=== PATIENT | female | born 1965 | race African-American/Black ===

== ENCOUNTER 2017-06-06 08:00 | Observation (INO) | payer BC ==
[2017-06-06] MEDS ORDERED: Nitroglycerin 2% Ointment 1 INCH/1 GM Packet ONE (08:36)
[2017-06-06 09:13] LABS: Hematocrit 29.9 % (36.0-47.0); Red Blood Cell (RBC) Count 3.89 mill/uL (4.20-5.40); White Blood Cell (WBC) Count 5.7 thou/uL (4.8-10.8)
[2017-06-06 09:32] LABS: Troponin I Less than 0.010 ng/mL (< 0.028)
[2017-06-06 09:37] LABS: ALT (SGPT) 8 U/L (8-55); AST (SGOT) 15 U/L (5-34); Alkaline Phosphatase 90 U/L (40-150); Anion Gap 11 mmol/L (10-20); BUN (Urea Nitrogen) 5 mg/dL (7.0-18.7); Bilirubin, Total 0.3 mg/dL (0.2-1.2); CK (CPK) 152 U/L (29-168); Calc. Creatinine Clearance 0 mL/min (70-130); Calcium 8.7 mg/dL (7.8-10.44); Carbon Dioxide 26 mmol/L (22-29); Chloride 104 mmol/L (98-107); Estimated GFR-MDRD Greater than 90; Globulin 3.9 g/dL (2.4-3.5); Hypochromia SLIGHT = 6-15 cells (100X) (0-5/hpf); Lipase 6 U/L (8-78); Microcytosis SLIGHT = 6-15 cells (100X) (0-5/hpf); Neutrophil 62 % (42-75); Polychromasia SLIGHT = 2-3 cells (100X) (0-2/hpf); Protein, Total 7.3 g/dL (6.0-8.3)
[2017-06-06 10:06] LABS: Bilirubin Negative (Negative); Blood, Urine Negative (Negative); Glucose, Urine (Dipstick) 250 mg/dL (Negative); Ketone, Urine Negative (Negative); Nitrite Negative (Negative); Protein, Urine (Dipstick) Negative (Neg-Trace)
--- NOTE | 2017-06-06 10:36 | RAD ---
PORTABLE CHEST 1 VIEW: Date: 06/06/17 Time: 0828 hours HISTORY: Chest pain. FINDINGS: Comparison made with exam of 10/24/10. The heart size is normal. No focal areas of consolidation, pneumothorax, or pleural effusions are se en. IMPRESSION: No radiographic evidence of acute cardiopulmonary process. POS: [facility]
--- NOTE | 2017-06-06 12:02 | HP ---
PRIMARY CARE PHYSICIAN: Richard Mendez M.D. REASON FOR ADMISSION: Chest pain. HISTORY OF PRESENT ILLNESS: A 52-year-old -[place] female with a history of hypertension and dyslipidemia who presented to the emergency room with complaint of chest pain. The patient reports that yesterday when she was walking in the evening time, all of suddenly, she was having chest pain which was left sided in location, sharp in nature, 8/10 in intensity, which was radiating to left arm as well as on the right side of the chest. She was feeling nausea and mild shortness of breath. She denies any diaphoresis. She denies any vomiting. She was having on and off chest pain since then. Each time episode was lasting for about a few minutes to a few seconds. This morning she was also having similar pain and that is why she decided to come to the emergency room for evaluation. Patient denies any relation of chest pain with food, respiration or activity. She denies any cough, fever, or chills. She denies any pleuritic pain. She denies any lower extremity edema, orthopnea, PND or leg swelling. She denies any dizziness, palpitation. She denies any reproducible pain. In the emergency room after treatment, her pain intensity reduced to 2/10. At this point, emergency room workup is unremarkable. Her cardiogram, chest x-ray and routine blood test is unremarkable and we are keeping this patient in the hospital for observation to rule out underlying cardiac etiology. REVIEW OF SYSTEMS: The following complete review of systems was negative, unless otherwise mentioned in the HPI or below: Constitutional: Weight loss or gain, ability to conduct usual activities. Skin: Rash, itching. Eyes: Double vision, pain. ENT/Mouth: Nose bleeding, neck stiffness, pain, tenderness. Cardiovascular: Palpitations, dyspnea on exertion, orthopnea. Respiratory: Shortness of breath, wheezing, cough, hemoptysis, fever or night sweats. Gastrointestinal: Poor appetite, abdominal pain, heartburn, nausea, vomiting, constipation, or diarrhea. Genitourinary: Urgency, frequency, dysuria, nocturia. Musculoskeletal: Pain, swelling. Neurologic/Psychiatric: Anxiety, depression. Allergy/Immunologic: Skin rash, bleeding tendency. Please see my HPI for pertinent positive and negative. All other review of systems reviewed and negative except as mentioned in the HPI. PAST MEDICAL HISTORY: Hypertension, on hypertensive medication; dyslipidemia, not on any statin therapy. PAST SURGICAL HISTORY: x2 and tubal ligation. PAST PSYCHIATRIC HISTORY: Reviewed and negative. 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 No history of tobacco, alcohol or illicit drug abuse. FAMILY HISTORY: The patient's mother had heart attack. No family history of cancer or stroke. ALLERGIES: No known drug allergies. CURRENT HOME MEDICATIONS: The patient is taking one blood pressure medication, but she is not able to tell the name of medication and she did not bring medication, so unable to review at this point. EMERGENCY ROOM COURSE: Patient is given Zofran 4 mg, morphine 2 mg, nitro patch 1 inch, aspirin 324 mg. PHYSICAL EXAMINATION: VITAL SIGNS: On arrival, blood pressure 188/90, pulse 105, respiratory rate 20 , temperature 98.5, saturation 98% on room air, weight 99.8 kilograms. GENERAL: Patient is currently alert, awake, no obvious acute distress. HEAD: Normocephalic, atraumatic. EYES: Pupils round, reactive to light. Extraocular muscles intact. ENT: Oropharynx within normal limits. Moist mucous membranes. No oral lesions. No pharyngeal erythema, no exudate. NECK: Supple. Range of motion is normal. No meningeal signs of irritation. LUNGS: Clear to auscultation without any rhonchi or rales. CARDIAC: S1, S2 regular without any murmur. ABDOMEN: Soft, bowel sounds present, nontender, nondistended. No organomegaly , no mass, no suprapubic tenderness. No epigastric tenderness, no Aguila sign. BACK: Examination unremarkable, no CVA tenderness. EXTREMITIES: Upper extremity passive movements of all joints are normal. Lower extremity, no edema. Good peripheral pulsation, no calf tenderness. SKIN: No skin rash. HEMATOLOGICAL SYSTEM: No lymphadenopathy. PSYCHIATRIC: Normal affect. NEUROLOGIC: Nonfocal examination. Speech normal. The patient moves all 4 limbs. IMAGING AND LABORATORY DATA: 1. EKG based on my review reveals normal sinus rhythm without any ischemic changes. Chest x-ray based on my review, no acute cardiopulmonary process. 2. CBC: WBC is 5.7, hemoglobin 9.3, platelet 269, MCV 76.8. 3. BMP; sodium 137, potassium 3.6, chloride 104, carbon dioxide 26, BUN 5, creatinine 0.77, glucose 131, calcium 8.7. 4. LFT: AST 15, ALT 8, alkaline phosphatase 90, albumin 3.4, CK 152, CK-MB 0.9 , troponin I less than 0.010, BNP 27.0. Urinalysis normal. Urine test negative. ASSESSMENT AND PLAN/IMPRESSION: 1. Acute chest pain. Patient had chest pain started yesterday and since then she has recurrent chest pain. Currently cardiac enzymes are negative and EKG is unremarkable. Her description of pain is also very atypical. At this point , this patient's pain is most likely explained with musculoskeletal, but given her risk factor profile with family history of hypertension and her age, cardiac etiology needs to be excluded. At this point, we will keep this patient in the hospital for observation. We will do serial cardiac enzymes x3 to rule out underlying ischemia. If cardiac enzymes are negative, then we will perform exercise Cardiolite stress test tomorrow morning. I will check D-dimer as well and if her D-dimer is negative, then we will completely exclude thromboembolic possibility, but if D-dimer is abnormal, then we will perform CT angio if needed. Meanwhile, continue with aspirin 325 mg p.o. daily, nitro patch q.8 hourly. Will check lipid profile for risk stratification. 2. Hypertension. Once we verify the patient's home medication for blood pressure, then we will resume while in hospital. Currently, the patient will be on nitro patch q.8 hourly. We will monitor the patient's blood pressure. 3. Dyslipidemia. We will check lipid profile tomorrow and based on lipid profile result, we will start statin therapy upon discharge. 4. Chronic microcytic anemia. This patient will need outpatient colonoscopy and endoscopic evaluation for anemia workup. We will start ferrous sulfate 324 mg p.o. b.i.d. and will check ferritin level. 5. Deep venous thrombosis prophylaxis not needed because we are expecting discharge in 24 hours. 6. Gastrointestinal prophylaxis, Pepcid 20 mg p.o. b.i.d. 7. Code status: The patient is FULL CODE. Patient's is surrogate decision maker. Disposition plan based on stress test result. [facility]ITALStefany
[2017-06-06] MEDS ORDERED: Diabetic Tussin 200 MG/10 ML UDCUP PO PRN (12:12)
[2017-06-06] MEDS ORDERED: Zolpidem Tartrate 5 MG TAB PO PRN (12:12)
[2017-06-06] MEDS ORDERED: Senokot 8.6 MG TAB PO PRN (12:12)
[2017-06-06] MEDS ORDERED: Acetaminophen 325 MG TAB PO PRN (12:12)
[2017-06-06] MEDS ORDERED: Mag-Al 1200 mg/1200 mg/30 ML UDCUP PO PRN (12:12)
[2017-06-06] MEDS ORDERED: Ondansetron HCl/PF 4 MG/2 ML Vial IVP PRN (12:12)
[2017-06-06] MEDS ORDERED: Ondansetron ODT 4 MG TAB PO PRN (12:12)
[2017-06-06] MEDS ORDERED: Milk Of Magnesia 30 ML UDCUP PO PRN (12:12)
[2017-06-06] MEDS ORDERED: Loperamide HCl 2 MG CAP PO PRN (12:12)
[2017-06-06] MEDS ORDERED: Nitroglycerin 0.4 MG TAB (25 Tab Bottle) SL PRN (12:12)
[2017-06-06 12:13] VITALS: BMI 42.7
[2017-06-06 12:16] LABS: Troponin I 0.012 ng/mL (< 0.028)
[2017-06-06] MEDS: Nitroglycerin 2% Ointment 1 INCH/1 GM Packet TOP SCH ×2 (14:29→22:11)
[2017-06-06 15:17] LABS: Troponin I Less than 0.010 ng/mL (< 0.028)
[2017-06-06] MEDS: Lorazepam 2 MG/ML VIAL ONE ×2 (16:57→17:17)
[2017-06-06] MEDS: Lorazepam 2 MG/ML VIAL SLOW IVP SCH ×3 (17:15→17:53)
[2017-06-06] MEDS: HYDROcodone/Acetaminophen 10/325 mg Tablet PO PRN (19:11)
[2017-06-06] MEDS: Famotidine 20 MG TAB PO SCH (19:11)
[2017-06-07] MEDS: HYDROcodone/Acetaminophen 10/325 mg Tablet PO PRN ×2 (04:38→12:05)
[2017-06-07] MEDS: Nitroglycerin 2% Ointment 1 INCH/1 GM Packet TOP SCH ×2 (05:37→14:55)
[2017-06-07] MEDS ORDERED: Ferrous Sulfate 325 MG TAB PO SCH (08:00)
[2017-06-07] MEDS ORDERED: Aspirin 325 MG TAB PO SCH (09:00)
[2017-06-07] MEDS ORDERED: Lorazepam 2 MG/ML VIAL SLOW IVP SCH (09:00)
[2017-06-07 11:48] VITALS: TEMP 97.9
[2017-06-07] MEDS: Famotidine 20 MG TAB PO SCH (12:06)
--- NOTE | 2017-06-07 13:06 | DIS ---
DATE OF ADMISSION: 06/06/2017 DATE OF DISCHARGE: 06/07/2017 PRIMARY CARE PHYSICIAN: Dr. Richard Mendez. DISCHARGE DISPOSITION: Home. PRIMARY DISCHARGE DIAGNOSIS: Chest pain, ruled out acute coronary syndrome. SECONDARY DISCHARGE DIAGNOSES: Hypertension, dyslipidemia, microcytic anemia, morbid obesity with BMI of 42. PRIMARY PROCEDURE/OPERATION: None. RADIOLOGICAL INVESTIGATION: Chest x-ray was normal. Stress test was negative. SIGNIFICANT LABORATORY: Hemoglobin 9.3 and D-dimer less than 0.27. Creatinine 0.77, ferritin 5.11. Cardiac enzymes negative. BNP 27, LDL 108. Urinalysis normal. DISCHARGE MEDICATIONS: New medication: Ferrous sulfate 325 mg p.o. daily, Pepcid 20 mg p.o. b.i.d. Continue following medication: Prinzide 10/12.5 one tablet p.o. daily. CONTRAINDICATIONS: None. CODE STATUS: FULL CODE. INPATIENT CONSULTANTS: None. ALLERGIES: No known drug allergies. DISCHARGE PLAN: Post hospital, the patient will follow up with Dr. Richard Mendez in 1 week. The patient is advised to get an outpatient EGD and colonoscopy for anemia workup. HOSPITAL COURSE: A 52-year-old -[place] female who came to the emergency room with a complaint of chest pain. Please see my HPI for further details. Her chest pain description was atypical. Based on her description, it was predominantly noncardiac, but because of her risk factors, we decided to keep this patient in the hospital. We did serial cardiac enzymes and that were negative. In the emergency room, electrocardiogram was normal. Chest x-ray was normal. Subsequent cardiac enzymes were negative. Telemetry remained unremarkable. She was asymptomatic while in hospital. We did exercise Cardiolite stress test, which was done in 2 days protocol, which came back negative as well. This patient has microcytic anemia and there is very low ferritin, and that is why we advised her to get iron supplementation and advised her to get outpatient EGD and colonoscopy for anemia workup. Primary care physician will refer her to [facility]. The patient is seen and examined at the bedside today. PHYSICAL EXAMINATION: VITAL SIGNS: Currently, temperature 97.9, pulse 82, respiratory rate 20, saturation 100%, blood pressure 159/78. Weight 261 pounds. GENERAL: The patient is currently alert, awake, in no acute distress. HEAD: Normocephalic, atraumatic. EYES: Pupils round, reactive to light. LUNGS: Clear to auscultation without any rhonchi or rales. CARDIAC: S1, S2 regular without any murmur. ABDOMEN: Soft and benign without any tenderness. No organomegaly, no mass. EXTREMITIES: No edema. NEUROLOGIC: Nonfocal examination. The patient is medically stable for discharge today. Before discharge, pt felt headache and vomiting, so we are doing CT brain. JJ
--- NOTE | 2017-06-07 14:01 | NM ---
NUCLEAR MEDICINE CARDIAC STRESS TEST WITH EJECTION FRACTION: HISTORY: Chest pain. High cholesterol. Hyperlipidemia. COMPARISON: Nuclear medicine stress test from 2011. TECHNIQUE: Stress and rest was performed after intravenous administration of 30 and 29.1 mCi technetium-99m ses tamibi, respectively. The exam was performed via nuclear treadmill stress. FINDINGS: Normal perfusion. No ischemia or scar. Normal wall motion. Ejection fraction calculated at 56%. IMPRESSION: Normal nuclear medicine stress test and ejection fraction. POS: [facility]
[2017-06-07 15:38] VITALS: BP 147/68
--- NOTE | 2017-06-07 15:38 | CT ---
CT BRAIN NONCONTRAST: 06/07/17 HISTORY: 52-year-old female with headache and dizziness. FINDINGS: There is no midline shift or any other mass effect. There is no evidence of acute intracranial hemo rrhage, large cortical infarct, obstructive hydrocephalus, or extraaxial fluid collection. The calv arium is intact. IMPRESSION: No acute intracranial findings. jn [] POS: [facility]
== END 2017-06-07 15:56 | disposition home or self-care (01) ==
LOC: ERS 08:00 → 2SW 10:48
PROVIDERS: ADMIT Internal Medicine; ATTEND Internal Medicine
DX: R07.89 Other chest pain (principal); I10 Essential (primary) hypertension; E78.5 Hyperlipidemia, unspecified; D64.9 Anemia, unspecified; E66.01 Morbid (severe) obesity due to excess calories; Z79.899 Other long term (current) drug therapy; Z68.41 Body mass index [BMI] 40.0-44.9, adult; Z98.891 History of uterine scar from previous surgery; Z98.51 Tubal ligation status
CPT/HCPCS: 36415; 70450; 71010; 78452; 80053; 80061; 81003; 81025; 82553; 82728; 83690; 83880; 84484; 85025; 85379; 93005; 93017; 94760; 96374; 96375; 96376; A9500; G0378; J2060; J2270; Q0162

== ENCOUNTER 2018-01-08 13:59 | Observation (INO) | payer BC ==
[~2018-01-08 13:59] MED LIST: ISOVUE-370 76%-LOCM 1 ML ONE
--- NOTE | 2018-01-08 14:52 | RAD ---
SINGLE VIEW CHEST: Date: 01/08/18 INDICATION: History of chest pain. IMPRESSION: No acute cardiopulmonary abnormality. The examination is not appreciably changed from the comparison dated 06/06/17. POS: [facility]
[2018-01-08 15:32] LABS: #Basophils 0.1 thou/uL (0.0-0.2); #Eosinphils 0.1 thou/uL (0.0-0.7); #Monocytes 0.8 thou/uL (0.11-0.59); #Neutrophils 5.3 thou/uL (1.40-6.50); %Basophils 1.6 % (0.0-1.0); %Eosinophils 1.4 % (0.0-10.0); %Lymphocytes 23.9 % (21.0-51.0); %Monocytes 9.6 % (0.0-10.0); %Neutrophils 63.5 % (42.0-75.0); Mean Corpuscular HGB CONC 32.7 g/dL (32.0-36.0); Mean Corpuscular Hemoglobin 24.4 pg (27.0-31.0); Mean Corpuscular Volume 74.6 fl (81.0-99.0); Mean Platelet Volume 8.7 fL (7.4-10.4); Platelet Count 261 thou/uL (130-400); RBC Distribution Width 15.8 % (11.5-14.5); Red Blood Cell (RBC) Count 4.08 mill/uL (4.20-5.40); White Blood Cell (WBC) Count 8.4 thou/uL (4.8-10.8)
[2018-01-08 15:48] LABS: Anisocytosis SLIGHT = 6-15 cells (100X) (0-5/hpf); Hypochromia SLIGHT = 6-15 cells (100X) (0-5/hpf); MDiff Complete? YES; Microcytosis SLIGHT = 6-15 cells (100X) (0-5/hpf); PLT Morphology Comment Appears Adequate; Polychromasia SLIGHT = 2-3 cells (100X) (0-2/hpf)
[2018-01-08 15:50] LABS: ALT (SGPT) 15 U/L (8-55); AST (SGOT) 24 U/L (5-34); Alkaline Phosphatase 91 U/L (40-150); Anion Gap 17 mmol/L (10-20); BUN (Urea Nitrogen) 10 mg/dL (7.0-18.7); Bilirubin, Total 0.3 mg/dL (0.2-1.2); CK (CPK) 172 U/L (29-168); Calc. Creatinine Clearance 0 mL/min (70-130); Calcium 9.4 mg/dL (7.8-10.44); Carbon Dioxide 19 mmol/L (22-29); Chloride 104 mmol/L (98-107); Estimated GFR-MDRD Greater than 90; Globulin 4.2 g/dL (2.4-3.5); Glucose 105 mg/dL (70-105); Lipase 13 U/L (8-78); Protein, Total 8.2 g/dL (6.0-8.3); Sodium 136 mmol/L (136-145)
[2018-01-08 15:53] LABS: Troponin I Less than 0.010 ng/mL (< 0.028)
[2018-01-08] MEDS ORDERED: Nitroglycerin 2% Ointment 1 INCH/1 GM Packet ONE (15:57)
[2018-01-08] MEDS ORDERED: Lorazepam 2 MG/ML VIAL ONE (16:26)
--- NOTE | 2018-01-08 17:00 | CT ---
CT ANGIOGRAM OF THE CHEST 01/08/18 HISTORY: Chest pain. Shortness of breath. COMPARISON: None. TECHNIQUE: CT angiogram of the chest performed in the axial plain. Bilateral oblique and coronal three dimension al reformatted images are submitted for interpretation. FINDINGS: No mediastinal mass, lymphadenopathy or hematoma. Nonspecific paratracheal lymph nodes. Heart size is normal. No significant pericardial fluid. The thoracic aorta and upper abdominal aorta have a normal caliber. No periaortic fat stranding. The visualized solid organs are unremarkable. Suboptimal evaluation of the pulmonary arterial system due to timing of bolus. The central pulmonary arteries are grossly unremarkable for filling defect/th romboembolism. The lobar segmental and subsegmental arteries could not be adequately assessed. Trache a and central bronchi are patent. No consolidation or masses. No pleural effusion or pneumothorax. No lytic or blastic lesions in the osseous structures. IMPRESSION: Suboptimal evaluation of the pulmonary arterial system due to the timing of bolus. No obvious central pulmonary artery embolism is appreciated. POS: [facility]
[2018-01-08 18:27] LABS: Troponin I Less than 0.010 ng/mL (< 0.028)
--- NOTE | 2018-01-08 18:34 | PDOC.FPRHP ---
- History of Present Illness Chief Complaint: Chest Pain History of Present Illness: 52 yo AA female, w/ pmh of HTN and HLD, comes in w/ cc of chest pain. Says chest pain started around 1:30 today. Described chest pain as sharp and stabbing. Occurred in left side of chest. Pain did not radiate anywhere. Reports being SOB during the episode. Did not do anything that resolved the pain. The pain lasted until she came to the ER. Nothing made it better or worse. Reports vision changes, says vision has been changing the last few weeks. Reports having daily headaches as well for a long time. Denies n/v/d/c. Reports having to pee all the time. Denies any burning when peeing. Pt reports taking all her bp medication this morning. Denies any fever or chills or recent illness. Pt was diagnosed with DVT at [facility] 05/2017. Has since finished anticoagulation treatment. Pt had chest pain like episode at this visit as well. Was worked up with stress test which was negative. - Allergies/Adverse Reactions Allergies Allergy/AdvReac Type Severity Reaction Status Date / Time No Known Allergies Allergy Verified 01/08/18 19:20 - Home Medications Medication Instructions Recorded Confirmed Type Lisinopril/Hydrochlorothiazide 1 tab PO DAILY #30 tab 07/20/13 06/06/17 Rx [Prinizide] Famotidine [Pepcid] 20 mg PO BID #60 tab 06/07/17 Rx Ferrous Sulfate [Feosol] 325 mg PO QAM-WM #30 tab 06/07/17 Rx Comments: Medications listed above are from previous hospitilization. Pt reports some of the medication doses being adjusted recently. Does not know the specific doses or names of medicines at this time. Will await home meds and need to adjust med reconciliation - History PMHx: HTN, HLD PSHx: x2 and tubal ligation FHx: Mother: heart attack Diabetes and HTN on both sides the family Social: Never Smoker, No alcohol, No illicit drug use - Review of Systems General: denies: fever/chills, weight/appetite/sleep changes, night sweats, fatigue ENT: denies: nasal congestion, rhinorrhea, other Respiratory: reports: shortness of breath, exercise intolerance. denies: cough , congestion Cardiovascular: reports: chest pain, edema (Notices swelling in her hands during the night). denies: palpitation, paroxysmal nocturnal dyspnea, orthopnea Gastrointestinal: denies: nausea, vomiting, diarrhea, constipation, abdominal pain, GI bleeding Genitourinary: denies: incontinence, dysuria, polyuria, discharge Skin: denies: rashes, lesions, jaundice, itching Musculoskeletal: denies: pain, tenderness, stiffness, swelling, arthritis/ arthralgias Neurological: denies: numbness, seizure, weakness Psychological: denies: anxiety, depression - Vital signs BP: [171/88] HR: [100] RR: [18] Tmax: [98.8] Pox: [98]% on [RA] Wt: [126 kg] - Physical Exam Constitutional: NAD, awake, alert and oriented, well developed HEENT: normocephalic and atraumatic, PERRLA, EOMI, grossly normal vision, normal nasal mucosa, MMM Neck: supple, trachea midline, no LAD, no JVD, no thyromegaly, no bruits Chest: no-tender to palpation Heart: RRR, normal S1/S2, no murmurs/rubs/gallops, pulses present, no edema Lungs: CTAB, no respiratory distress, good air movement, no rales/rhonchi, no wheezing, no retractions -Lungs: Lungs somewhat hard to auscultate. No abnormality noted overall Abdomen: soft, non-tender, bowel sounds present, no masses/distention, no hernias Musculoskeletal: normal structure, normal tone Neurological: no focal deficit, normal sensation Skin: no rash/lesions, good turgor, capillary refill <2 seconds, no jaundice Heme/Lymphatic: no unusual bruising or bleeding, no purpura, no petechia Psychiatric: normal mood and affect, good judgment and insight, intact recent and remote memory FMR H&P: Results - Labs Result Diagrams: 01/08/18 14:49 01/08/18 14:49 Lab results: WBC 8.4 thou/uL (4.8-10.8) 01/08/18 14:49 Hgb 10.0 g/dL (12.0-16.0) L 01/08/18 14:49 Hct 30.4 % (36.0-47.0) L 01/08/18 14:49 MCV 74.6 fl (81.0-99.0) L 01/08/18 14:49 Plt Count 261 thou/uL (130-400) 01/08/18 14:49 Neutrophils % 63.5 % (42.0-75.0) 01/08/18 14:49 Sodium 136 mmol/L (136-145) 01/08/18 14:49 Potassium 4.0 mmol/L (3.5-5.1) 01/08/18 14:49 Chloride 104 mmol/L (98-107) 01/08/18 14:49 Carbon Dioxide 19 mmol/L (22-29) L 01/08/18 14:49 BUN 10 mg/dL (7.0-18.7) 01/08/18 14:49 Creatinine 0.76 mg/dL (0.6-1.1) 01/08/18 14:49 Glucose 105 mg/dL (70-105) 01/08/18 14:49 Calcium 9.4 mg/dL (7.8-10.44) 01/08/18 14:49 Total Bilirubin 0.3 mg/dL (0.2-1.2) 01/08/18 14:49 AST 24 U/L (5-34) 01/08/18 14:49 ALT 15 U/L (8-55) 01/08/18 14:49 Alkaline Phosphatase 91 U/L (40-150) 01/08/18 14:49 Creatine Kinase 172 U/L (29-168) H 01/08/18 14:49 CK-MB (CK-2) 1.0 ng/mL (0-6.6) 01/08/18 14:49 B-Natriuretic Peptide Less than 10.0 pg/mL (0-100) 01/08/18 14:52 Serum Total Protein 8.2 g/dL (6.0-8.3) 01/08/18 14:49 Albumin 4.0 g/dL (3.5-5.0) 01/08/18 14:49 Lipase 13 U/L (8-78) 01/08/18 14:49 - EKG Interpretation EKG: Normal Sinus Rhythm, No abnormality noted - Radiology Interpretation Chest x-ray Status: image reviewed by me, report reviewed by me (No acute cardiopulmonary process. No change form cxray back in 9/17) CT scan - chest Status: image reviewed by me, report reviewed by me (CTA- dye not timed right. No central PE seen) FMR H&P: A/P - Problem List (1) Atypical chest pain Current Visit: No Status: Acute Code(s): R07.89 - OTHER CHEST PAIN (2) Hypertensive urgency Current Visit: No Status: Acute Code(s): I16.0 - HYPERTENSIVE URGENCY (3) Dyslipidemia Current Visit: No Status: Chronic Code(s): E78.5 - HYPERLIPIDEMIA, UNSPECIFIED (4) Hypertension Current Visit: No Status: Chronic Code(s): I10 - ESSENTIAL (PRIMARY) HYPERTENSION (5) Microcytic anemia Current Visit: No Status: Chronic Code(s): D50.9 - IRON DEFICIENCY ANEMIA, UNSPECIFIED - Plan 1) Atypical chest pain, likely 2/2 Elevated Blood pressure Will place in observation to telemetry and proceed with chest pain rule out (pt 's last stress > 6 months ago). Troponins negative so far, continue to trend. R/p EKG if any acute changes. Plan for stress test in AM. Will check mg, p, TSH, A1C Nitro prn for any recurrent chest pain 2) Hypertensive urgency. Suspect poor BP control to be primary cause of chest pain and recent symptoms such as visual blurring. BP likely been elevated for last few weeks. Did not check BP at home Will adjust BP medications while in-house. Prns ordered. Patient did not know home meds doses. Will med rec and adjust medications as possible. 3) HLD. Check FLP, start statin if patient not on one. Await med rec. 4) H/o DVT. PPx with Lovenox. CTA done- negative for PE. No increased leg swelling at this time. 5) Iron Deficiency Anemia Hgb 10, MCV low. Will start BID iron supplementationRestart iron supplementation. FMR H&P: Upper Level - Pertinent history 52 yo BF pmhx HTN, HLD, and DVT 6 mo ago p/w chest pain x 1 day. Describes it as left sided, sharp/shooting, and non-radiating. Came on acutely while she was sitting down. Denies associated dyspnea, N/V, or diaphoresis. She is not sure if exertion makes the pain worse as she hasn't really moved around since the pain started. Also endorses about 2-3 weeks of visual blurring and increased urinary frequency. Patient states that she does not check her BPs regularly at home but is compliant with her home BP medication. Pts BPs were noted to be 190s systolic upon presentation in ER and improved slightly after nitro-patch applied. Patient states that her chest pain also improved after nitro and ASA. She underwent CTA due to her history of DVT which was not correctly timed and so could not evaluate the peripheral pulmonary arteries but showed no central PE. Patient had no hypoxia in ER. She had already finished her course of blood thinners. Of note, patient had a full chest pain workup including stress test back in May 2017 that was negative. - Pertinent findings Gen: AAOx3, NAD CV: RRR; no m/g/r Lungs: CTAB Abd: central obesity, +BS, non-tender Ext: non-pitting edema, DP pulses 2+ b/l Skin: acanthosis nigricans - Plan Date/Time: 01/08/18 677 I, Valdemar Bruno MD, have evaluated this patient and agree with findings/plan as outlined by auditor internal resident. Pertinent changes/additions are listed here. 52 yo BF with: 1) Atypical chest pain, likely 2/2 #2 v. less likely ACS. Will place in observation to telemetry and proceed with chest pain rule out (pt's last stress > 6 months ago). Troponins negative so far, continue to trend. R/p EKG if any acute changes. Plan for stress test in AM. Risk stratification with FLP and A1c. 2) Hypertensive urgency. Suspect poor BP control to be primary cause of chest pain and recent symptoms such as visual blurring. Will adjust BP medications while in-house. Prns ordered. 3) HLD. Check FLP, start statin (unsure if pt already on) 4) H/o DVT. PPx with Lovenox. 5) JENNIFER. Restart iron supplementation. Attending Addendum - Attending Addendum Date/Time: 01/08/18 0492 I personally evaluated the patient and discussed the management with Dr. Perez. I agree with the History, Examination, Assessment and Plan documented above with any addition or exceptions noted below.
[2018-01-08] MEDS ORDERED: Calcium Carbonate 500 MG ChewTAB PO PRN ×2 (19:09→22:49)
[2018-01-08] MEDS ORDERED: Ondansetron ODT 4 MG TAB PO PRN ×2 (19:09→22:49)
[2018-01-08] MEDS ORDERED: Acetaminophen 650 MG Suppository PR PRN ×2 (19:09→22:48)
[2018-01-08] MEDS ORDERED: Acetaminophen 325 MG TAB PO PRN ×2 (19:09→22:48)
[2018-01-08] MEDS ORDERED: Ondansetron HCl/PF 4 MG/2 ML Vial IVP PRN ×2 (19:09→22:49)
[2018-01-08] MEDS ORDERED: hydrALAZINE 20 MG/ML VIAL SLOW IVP PRN ×2 (19:11→22:50)
[2018-01-08 19:14] VITALS: BMI 45.1
[2018-01-08] MEDS ORDERED: Lisinopril/Hydrochlorothiazide 10 mg/12.5 mg Tablet PO SCH (19:15)
[2018-01-08] MEDS ORDERED: Enoxaparin Sodium 40 MG/0.4 ML SYRINGE SC SCH (19:15)
[2018-01-08] MEDS ORDERED: Ferrous Sulfate 325 MG TAB PO SCH ×2 (19:15→19:45)
[2018-01-08] MEDS ORDERED: Nitroglycerin 0.4 MG TAB (25 Tab Bottle) SL PRN ×2 (19:18→22:50)
[2018-01-08 19:36] LABS: Magnesium 2.1 mg/dL (1.6-2.6); Phosphorus 3.5 mg/dL (2.3-4.7)
[2018-01-08 19:40] LABS: Hemoglobin A1c 5.6 % (4.0-6.0)
[2018-01-08] MEDS ORDERED: Famotidine 20 MG TAB PO SCH (21:00)
[2018-01-09] MEDS ORDERED: Ferrous Sulfate 325 MG TAB PO SCH ×2 (08:00)
[2018-01-09] MEDS ORDERED: Enoxaparin Sodium 40 MG/0.4 ML SYRINGE SC SCH ×2 (09:00)
[2018-01-09] MEDS ORDERED: Lisinopril/Hydrochlorothiazide 10 mg/12.5 mg Tablet PO SCH (09:00)
[2018-01-09] MEDS ORDERED: Famotidine 20 MG TAB PO SCH (09:00)
[2018-01-09 12:14] VITALS: BP 159/80; TEMP 98.1
[2018-01-09] MEDS ORDERED: Fioricet 325/50/40 mg Tablet PO PRN (13:32)
--- NOTE | 2018-01-09 13:39 | PDOC.FM ---
- Subjective Subjective: No chest pain this morning. Described chest pain as left sided and substernal, constant, sharp. No shortness of breath or nausea associated without radiation. - Objective MAR Reviewed: Yes Vital Signs & Weight: Vital Signs (12 hours) Temp Pulse Resp BP Pulse Ox 01/09/18 11:45 98.1 F 83 16 159/80 H 100 01/09/18 08:13 83 01/09/18 07:49 97.9 F 83 16 01/09/18 07:40 98.0 F 82 16 145/70 H 100 01/09/18 04:17 97.9 F 83 16 132/66 96 Weight Weight 126.961 kg I&O: 01/08/18 01/09/18 01/10/18 06:59 06:59 06:59 Intake Total 240 Output Total 800 Balance -560 Result Diagrams: 01/08/18 14:49 01/08/18 14:49 <Regina Mendez - Last Filed: 01/09/18 13:39> - Objective Vital Signs & Weight: Vital Signs (12 hours) Temp Pulse Resp BP Pulse Ox 01/09/18 11:45 98.1 F 83 16 159/80 H 100 01/09/18 08:13 83 01/09/18 07:49 97.9 F 83 16 01/09/18 07:40 98.0 F 82 16 145/70 H 100 Weight Weight 126.961 kg I&O: 01/08/18 01/09/18 01/10/18 06:59 06:59 06:59 Intake Total 240 Output Total 800 Balance -560 Result Diagrams: 01/08/18 14:49 01/08/18 14:49 <Shraddha Jones - Last Filed: 01/09/18 17:16> Phys Exam - Physical Examination Constitutional: NAD HEENT: PERRLA, moist MMs Respiratory: no wheezing, no rales, no rhonchi, clear to auscultation bilateral Cardiovascular: RRR, no significant murmur Gastrointestinal: soft, non-tender, no distention Musculoskeletal: no edema, pulses present Neurological: non-focal, normal sensation Psychiatric: normal affect, A&O x 3 Skin: no rash, normal turgor <Regina Mendez - Last Filed: 01/09/18 13:39> Dx/Plan (1) Hypertensive emergency Code(s): I16.1 - HYPERTENSIVE EMERGENCY Status: Acute (2) Atypical chest pain Code(s): R07.89 - OTHER CHEST PAIN Status: Acute (3) Dyslipidemia Code(s): E78.5 - HYPERLIPIDEMIA, UNSPECIFIED Status: Chronic (4) Hypertension Code(s): I10 - ESSENTIAL (PRIMARY) HYPERTENSION Status: Chronic - Plan Plan: 1) Atypical chest pain, Pt's last stress > 6 months ago. Troponins negative. EKG wnl. TSH elevated with normal free T4. Recommend outpatient follow-up on TSH level. Nitro prn for any recurrent chest pain Lipid panel pending. 2) Hypertensive emergency Continue Lisinopril/HCTZ 3) HLD. FLP pending; will start statin pending lipid panel and ascvd risk. 4) H/o DVT. PPx with Lovenox. CTA done- negative for PE. No increased leg swelling at this time. 5) Iron Deficiency Anemia Hgb 10, MCV low. BID iron supplementation. Dispo: prior stress completed ~6 mo ago. No indication for additional stress test today. Spoke with cardiology. Recommend follow-up with PCP. Recommend repeat TSH in 4-6 weeks. <Regina Mendez - Last Filed: 01/09/18 13:39> Attending Addendum - Attending Addendum Date/Time: 01/09/18 4835 I personally evaluated the patient and discussed the management with Dr. Mendez. I agree with the History, Examination, Assessment and Plan documented above with any addition or exceptions noted below. The patient is not having chest pain this morning. Cardiology did not think pt needed a stress test with a workup done about 6 months ago. Will discharge home and pt will f/u with PCP. Our clinic information was given to the patient. <Shraddha Jones - Last Filed: 01/09/18 17:16>
[2018-01-09 14:03] LABS: Cardiac Risk 3.3 (Less than 4.5)
== END 2018-01-09 15:22 | disposition home or self-care (01) ==
LOC: ERS 13:59 → 2SW 19:01 → UNDODISOB 21:29
PROVIDERS: ADMIT Family Medicine; ATTEND Family Medicine
DX: R07.89 Other chest pain (principal); I16.0 Hypertensive urgency; I10 Essential (primary) hypertension; E78.5 Hyperlipidemia, unspecified; D50.9 Iron deficiency anemia, unspecified
CPT/HCPCS: 36415; 71045; 71275; 80053; 80061; 82553; 83036; 83690; 83735; 83880; 84100; 84439; 84443; 84484; 85025; 93005; 96372; 96374; G0378; J1650; J2060

== ENCOUNTER 2018-10-26 14:04 | Outpatient (CLI) | payer BC | END 2018-10-26 14:05 | disposition home or self-care (01) | LOC: BICMAMMO 14:04 | PROVIDERS: ATTEND Physician Assistant | DX: N64.52 Nipple discharge (principal); R92.1 Mammographic calcification found on diagnostic imaging of breast; Z80.3 Family history of malignant neoplasm of breast | CPT/HCPCS: 77066; G0279 ==

== ENCOUNTER 2018-11-06 04:28 | Observation (INO) | payer BC ==
[2018-11-06] MEDS ORDERED: Nitroglycerin 0.4 MG TAB 1 EACH ONE (04:59)
[2018-11-06] MEDS ORDERED: Aspirin Chewable 81 MG TAB ONE (04:59)
[2018-11-06 05:00] LABS: #Eosinphils 0.1 thou/uL (0.0-0.7); #Monocytes 0.6 thou/uL (0.11-0.59); #Neutrophils 3.3 thou/uL (1.40-6.50); %Basophils 0.1 % (0.0-1.0); %Eosinophils 1.4 % (0.0-10.0); %Lymphocytes 33.3 % (21.0-51.0); %Monocytes 9.5 % (0.0-10.0); %Neutrophils 55.7 % (42.0-75.0); Hemoglobin 10.3 g/dL (12.0-16.0); Mean Corpuscular HGB CONC 30.5 g/dL (32.0-36.0); Mean Corpuscular Hemoglobin 23.3 pg (27.0-31.0); Mean Corpuscular Volume 76.3 fL (78.0-98.0); Mean Platelet Volume 8.5 fL (7.4-10.4); Platelet Count 351 thou/uL (130-400); RBC Distribution Width 15.2 % (11.5-14.5); Red Blood Cell (RBC) Count 4.41 mill/uL (4.20-5.40)
[2018-11-06 05:12] LABS: ALT (SGPT) 10 U/L (8-55); AST (SGOT) 20 U/L (5-34); Albumin 3.8 g/dL (3.5-5.0); Alkaline Phosphatase 98 U/L (40-150); Anion Gap 14 mmol/L (10-20); BUN (Urea Nitrogen) 6 mg/dL (9.8-20.1); Bilirubin, Total 0.2 mg/dL (0.2-1.2); Calc. Creatinine Clearance 0 mL/min (70-130); Carbon Dioxide 23 mmol/L (22-29); Chloride 105 mmol/L (98-107); Estimated GFR-MDRD 90; Globulin 4.3 g/dL (2.4-3.5); Glucose 125 mg/dL (70-105); Potassium 3.8 mmol/L (3.5-5.1); Protein, Total 8.1 g/dL (6.0-8.3); Sodium 138 mmol/L (136-145)
[2018-11-06] MEDS ORDERED: Acetaminophen 500 MG TAB ONE (06:47)
--- NOTE | 2018-11-06 08:04 | RAD ---
SINGLE VIEW CHEST: HISTORY: Chest pain. COMPARISON: 01/08/2018 FINDINGS: Single view of the chest show normal sized cardiomediastinal silhouette. There is no evidence of cons olidation, mass, or pleural effusion. The bones are unremarkable. IMPRESSION: No evidence of acute cardiopulmonary disease. POS: [facility]
[2018-11-06 08:23] LABS: Troponin I Less than 0.010 ng/mL (< 0.028)
[2018-11-06] MEDS ORDERED: hydrALAZINE 20 MG/ML VIAL SLOW IVP PRN (10:33)
[2018-11-06] MEDS ORDERED: ISOVUE-370 76%-LOCM 1 ML ONE (10:34)
[2018-11-06] MEDS ORDERED: Lisinopril/Hydrochlorothiazide 20 mg/12.5 mg Tablet PO SCH (10:45)
[2018-11-06] MEDS ORDERED: Amlodipine 10 MG TAB PO SCH (10:45)
[2018-11-06] MEDS: Lisinopril/Hydrochlorothiazide 20 mg/12.5 mg Tablet PO SCH (13:20)
[2018-11-06] MEDS: Amlodipine 10 MG TAB PO SCH (13:20)
[2018-11-06 13:50] LABS: Troponin I Less than 0.010 ng/mL (< 0.028)
--- NOTE | 2018-11-06 13:58 | NM ---
MYOCARDIAL PERFUSION SCAN: Stress-only exam performed. INDICATION: Chest pain. TECHNIQUE: The patient was given 27 mCi of technetium sestamibi. Adenosine protocol was followed. FINDINGS: There is normal activity throughout the left ventricle on the stress-only study. Wall motion appears normal. Ejection fraction is recorded at 70%. IMPRESSION: Negative stress-only exam. POS: [facility]
[2018-11-06 15:02] VITALS: BMI 42.8
[2018-11-06] MEDS ORDERED: diphenhydrAMINE 25 MG CAP PO PRN (16:15)
[2018-11-06] MEDS ORDERED: Ondansetron PF 4 MG/2 ML Vial IVP PRN (17:29)
--- NOTE | 2018-11-06 17:42 | CT ---
CT ARTERIOGRAM CHEST WITH IV CONTRAST AND 3D MIP IMAGIN11/06/18 HISTORY: Dyspnea. Chest pain. COMPARISON: 01/08/18. FINDINGS: There is good contrast opacification of the pulmonary arteries and thoracic aorta with normal branchi ng of the great vessels at the aortic arch. No pleural fluid, pneumothorax, or mediastinal adenopathy are apparent. IMPRESSION: No CT evidence of pulmonary embolus. POS: [facility]
[2018-11-06] MEDS: Acetaminophen 500 MG TAB PO PRN (17:46)
--- NOTE | 2018-11-07 01:11 | HP ---
CHIEF COMPLAINT: Chest pain. HISTORY OF PRESENT ILLNESS: The patient is an obese -Portuguese female, with past medical history significant for hypertension and chronic anemia, who presented to the hospital with complaints of chest pain that began while she was at work. 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 She states the chest pain came on suddenly, with sharp, and radiated to the right shoulder. She reports no associated palpitations, dizziness, or diaphoresis. She states that she may have had some accompanying shortness of breath. She presented to the emergency room for further workup and treatment. On arrival, serial troponin was negative x3. Her EKG showed no evidence of ischemic ST changes, and revealed sinus rhythm with the ventricular rate of 84 beat per minute. Given the patient's risk factors including obesity and hypertension, a Cardiolite stress test was ordered, which was negative. Prior workup has included a stress test in May of 2017, which was also negative for reversible ischemia. ALLERGIES: NO KNOWN DRUG ALLERGIES. HOME MEDICATIONS: Amlodipine 10 mg daily Toprol XL 50 mg daily Lisinopril 20/12.5 mg daily Acetaminophen/butalb/caffeine 325/40/25 mg PRN Ferrous sulfate 325 mg daily PAST MEDICAL HISTORY: Hypertension, history of DVT, chronic iron deficiency anemia, and obesity. SOCIAL HISTORY: The patient lives at home with her . She denies any smoking or alcohol use. She denies illicit drug use. 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 FAMILY HISTORY: She does have a history of coronary artery disease in her mother. PAST SURGICAL HISTORY: x2 and tubal ligation. REVIEW OF SYSTEMS: CONSTITUTIONAL: Negative for fever, chills, or weight loss. ENT: Negative for injury, pain, or discharge. NECK: Negative for lymphadenopathy or swelling. CARDIOVASCULAR: As above, positive for chest pain and shortness of breath. Negative for palpitations, dizziness, or edema. RESPIRATORY: Negative for recent cough, wheezing, or pleuritic chest pain. Positive for some shortness of breath associated with chest pain. ABDOMEN/GI: Negative for abdominal pain, nausea, vomiting, diarrhea, or constipation. BACK: Negative for injury and pain. EXTREMITIES: Negative for swelling or rash. PHYSICAL EXAMINATION: VITAL SIGNS: Blood pressure 132/71, pulse 84, respirations 20, and O2 sat 94% on room air General: this is an obese AAF in [facility], resting comfortably Neck: no JVD, no lymphadenopathy CV: S1S2, RRR, no appreciable MRG Lungs: regular respiratory rate and pattern, clear to auscultation bilaterally Abdomen: Obese, soft , positive bowel sounds, NT Extremities: no edema, + 2 DP pulses bilaterally LABORATORY DATA: Hemoglobin 10.3, hematocrit 33.7, and platelet count 351. Sodium 138, potassium 3.8, chloride 105, BUN 6, creatinine 0.81, glucose 125, and albumin 3.8. IMAGING DATA: EKG as described in HPI shows normal sinus rhythm and no acute ST or T wave changes. CTA performed today, reveals no evidence of pulmonary embolism , no pleural fluid, pneumothorax, or mediastinal adenopathy were apparent. ASSESSMENT: 1. Atypical chest pain in a patient with numerous risk factors for coronary artery disease, however, ACS ruled out, stress today was negative for reversible ischemia. 2. Obesity. 3. Hypertensive urgency on arrival, improved. 4. Chronic iron deficiency anemia. PLAN: The patient has continued to complain of some chest discomfort as well as some dizziness. So far, workup has been negative. She will continue her antihypertensives and we will check orthostatics, and continue Tylenol for likely musculoskeletal pain. Further recommendations based on hospital course. Job ID: [id number] [facility]
[2018-11-07] MEDS: Acetaminophen 500 MG TAB PO PRN (03:46)
[2018-11-07 05:55] LABS: Cardiac Risk 3.4 (Less than 4.5)
[2018-11-07] MEDS: Amlodipine 10 MG TAB PO SCH (07:43)
[2018-11-07] MEDS: Lisinopril/Hydrochlorothiazide 20 mg/12.5 mg Tablet PO SCH (07:43)
[2018-11-07 07:57] VITALS: BP 135/78; TEMP 98.2
--- NOTE | 2018-11-07 15:37 | DIS ---
DATE OF ADMISSION: 11/06/2018 DATE OF DISCHARGE: 11/07/2018 ALLERGIES: NO KNOWN DRUG ALLERGIES. CHIEF COMPLAINT: Chest pain. FINAL DIAGNOSES: Atypical chest pain, acute coronary syndrome ruled out, chronic anemia, and hypertension. LABORATORY RESULTS: Negative troponin x3. Triglycerides 56, cholesterol 162, LDL cholesterol 104, HDL cholesterol 47. All liver function tests within normal limits. Sodium 138, potassium 3.8, BUN 6, creatinine 0.81. Hemoglobin 10.3, hematocrit 33.7, and white blood cell count 6. IMAGING RESULTS: Myocardial perfusion scan showed normal activity throughout the left ventricle. EF recorded at 70%. Chest x-ray, no evidence of acute cardiopulmonary disease. CTA showed no CT evidence of pulmonary embolus. There was no pleural fluid, pneumothorax, or mediastinal adenopathy apparent. CONSULTATION: None. VITAL SIGNS: Blood pressure 135/78, temperature 98.2, pulse 79, respirations 16 , and O2 saturation 96% on room air. HOSPITAL COURSE: The patient is a pleasant female with past medical history significant for hypertension and chronic anemia, who presented with complaints of chest pain that she described as sharp and radiated to the right shoulder. Based on her risk factors, an inpatient Cardiolite stress test was ordered, which was indeed negative for any reversible ischemia. She also had a CTA with findings as above. The patient continued to have some chest discomfort after her testing, which was eventually relieved with Tylenol. This morning, she has no further chest pain. She has ambulated without issue. She denies any shortness of breath or dizziness. PHYSICAL EXAMINATION: GENERAL: Obese, awake, and alert, in no acute distress. HEENT: Atraumatic and normocephalic. Eye movement intact. NECK: Supple. No JVD. No carotid bruit. RESPIRATORY: Regular respiratory rate and pattern. Clear to auscultation bilaterally. No rhonchi or wheeze. CV: S1 and S2, regular rate and rhythm. No appreciable murmurs, rubs, or gallops. GI: Soft, nontender, and obese. Normal bowel sounds. EXTREMITIES: No edema. +2 DP pulses bilaterally. SKIN: Normal, warm and dry. No evidence of rash. NEUROLOGIC: Nonfocal. CONDITION AT DISCHARGE: Stable. DISCHARGE MEDICATIONS: Will continue her home medication regimen includin. Amlodipine 10 mg daily. 2. Toprol-XL 50 mg daily. 3. one p.o. daily. 4. Acetaminophen, butalbital, and caffeine 325/25/40 mg one p.o. p.r.n. 5. Ferrous sulfate 325 mg daily. DISCHARGE DISPOSITION: Home. PLAN: We would continue to recommend Tylenol for her chest and shoulder discomfort. Her workup was negative and her symptoms have completely resolved. She will continue aggressive risk factor modification including weight loss and exercise. She will continue close followup as well with her primary care doctor. Job ID: [id number] [facility]
--- NOTE | 2018-11-09 13:34 | STRESS ---
Acquisition Time: 2018-11-06 11:18:25 Total Exercise Time: 00:04:00 Test Indications: CHEST PAIN Medications: Protocol: ADENOSINE Max HR: 113 BPM 66% of Pred: 169 BPM Max BP: 152/084 mmHG Max Work Load: 1.0 METS RESTING ECG: NORMAL SINUS RHYTHM AT 76 BPM SYMPTOMS: DYSPNEA NORMAL BP RESPONSE ECTOPY: NONE ECG STRESS: NO SIGNIFICANT CHANGES INTERPRETATION: AWAIT NUCLEAR IMAGES FOR DEFINITIVE DIAGNOSIS Confirmed by FAINA OWENS ([id number]), industrial editor KEIRA BOYER ([id number]) on 11/09/2018 1:34:25 PM Referred By: AGUILAR LIMA Confirmed By:FAINA OWENS
== END 2018-11-07 11:17 | disposition home or self-care (01) ==
LOC: ERS 04:28 → ERHOLD 06:56 → 2SW 15:00
PROVIDERS: ADMIT Hospitalist; ATTEND Hospitalist
DX: R07.89 Other chest pain (principal); I16.0 Hypertensive urgency; D50.9 Iron deficiency anemia, unspecified; E66.9 Obesity, unspecified; Z68.42 Body mass index [BMI] 45.0-49.9, adult; Z98.51 Tubal ligation status; Z86.718 Personal history of other venous thrombosis and embolism; Z79.899 Other long term (current) drug therapy; Z98.890 Other specified postprocedural states
CPT/HCPCS: 36415; 71045; 71275; 78452; 80053; 80061; 84484; 85025; 93005; 93017; 94760; A9500; G0378; J0153; Q9966

== ENCOUNTER 2019-08-16 16:50 | Outpatient (CLI) | payer BC | END 2019-08-16 16:51 | disposition home or self-care (01) | LOC: LABBT 16:50 | PROVIDERS: ATTEND Obstetrics & Gynecology | DX: Z01.810 Encounter for preprocedural cardiovascular examination (principal); N92.0 Excessive and frequent menstruation with regular cycle; R10.2 Pelvic and perineal pain | CPT/HCPCS: 93005; 93010 ==

== ENCOUNTER 2019-08-23 11:23 | Day surgery (SDC) | payer BC ==
[2019-08-16 17:31] LABS: Hemoglobin 12.2 g/dL (12.0-16.0); Mean Corpuscular HGB CONC 32.5 g/dL (32.0-36.0); Mean Corpuscular Hemoglobin 28.9 pg (27.0-31.0); Mean Platelet Volume 8.2 fL (7.4-10.4); Platelet Count 268 thou/uL (130-400); RBC Distribution Width 13.2 % (11.5-14.5); Red Blood Cell (RBC) Count 4.21 mill/uL (4.20-5.40); White Blood Cell (WBC) Count 7.3 thou/uL (4.8-10.8)
[2019-08-16 17:53] LABS: Anion Gap 12 mmol/L (10-20); BUN (Urea Nitrogen) 10 mg/dL (9.8-20.1); Calc. Creatinine Clearance 0 mL/min (70-130); Calcium 9.1 mg/dL (7.8-10.44); Carbon Dioxide 26 mmol/L (22-29); Chloride 105 mmol/L (98-107); Estimated GFR-MDRD 87; Glucose 106 mg/dL (70-105); Potassium 4.1 mmol/L (3.5-5.1); Sodium 139 mmol/L (136-145)
--- NOTE | 2019-08-17 07:26 | HP ---
DATE OF PROCEDURE: She is set for hysterectomy procedure for August 16. HISTORY OF PRESENT ILLNESS: Ms. Corona is a 54 year female, G2, P2 with prior section x2 and tubal ligation, who has been having very heavy and frequent administration. She saturates through a maxi pad and tampon in less than 1 hour for her heavy flow days. She has had documented anemia and has been treated with iron deficiency anemia therapy. She also has chronic hypertension, is followed by her nurse practitioner, Waleska Ambriz. She was seen in my office on July 12 for the heavy bleeding issues. She underwent a pelvic ultrasound at that venture showing her to have multiple large uterine fibroids and ranged from 4.4 to an 8 x 9 cm. Due to these findings, she is scheduled for definitive surgical therapy for robotic hysterectomy with bilateral salpingo-oophorectomy and with removal of the specimen via the ExCITE procedure. PAST MEDICAL HISTORY: Her medical problems are chronic hypertension and also history of migraines. PAST SURGICAL HISTORY: Noted section x2 and tubal ligation. MANAGEMENT TRAINEE PROGRAM STORES HISTORY: She had a normal Pap smear two years ago. No abnormal cervical dysplasia history. CURRENT MEDICATIONS: 1. Amlodipine 10 mg tablet daily. 2. Zhbvydxvyb-zibecldnmwwma-ikwzmkvi 300 mg-40 mg tablet one p.o. q.6 hours as needed for headache. 3. She has also clonidine 0.1 mg tablet p.r.n. for blood pressure reading greater than 160/100. 4. She also takes Lasix 20 mg tablet daily. 5. Lisinopril 12.5 mg tablet daily. 6. Toprol 100 mg tablet twice a day. FAMILY HISTORY: Breast cancer in her maternal aunt and colon cancer in her father. SOCIAL HISTORY: Nonsmoker. She is employed. No excessive alcohol use. PHYSICAL EXAMINATION: VITAL SIGNS: Her blood pressure is 146/80, height 5 feet 6 inches, weight 258 pounds with a BMI of 41.6, O2 saturation on room air is 99%, pulse is 87, and respirations 18. HEENT: Within normal limits. CHEST: Clear to auscultation. HEART: Regular rate and rhythm. S1 and S2 heart sounds. No murmurs, rubs, or gallops. ABDOMEN: Soft, nontender, and nondistended with no palpable masses or obesity noted. PELVIC: Vulva and vagina had no lesions. Cervix had no lesions. Uterus was enlarged, irregular-shaped size, contour 16-week size, multiple fibroids. ASSESSMENT: This is a 54-year-old woman with prior section x2 and tubal ligation with 16 and 18-week size uterine fibroids, prior section x2. PLAN: Plan is to proceed with robotic total laparoscopic hysterectomy and bilateral salpingo-oophorectomy with ExCITE procedure for removal of the specimen. The patient is aware of possible need for open hysterectomy if significant adhesions are encountered or difficulty in performing the procedure laparoscopically occurs. Risks and benefits of procedure have been discussed in detail. She is set for surgery on 08/16. Job ID: [id number]
[~2019-08-23 11:23] MED LIST changes: +Dexamethasone 20 MG/5 ML VIAL ONE; -ISOVUE-370 76%-LOCM 1 ML ONE; +Metoprolol Tartrate 5 MG/5 ML VIAL ONE; +Ondansetron PF 4 MG/2 ML Vial ONE; +PHENYLEPHRINE-NS 100 MCG/ML 10 ML SYRINGE ONE; +PROPOFOL 200 MG/20 ML VIAL ONE; +Rocuronium Bromide 10 MG/ML (10ML VIAL) ONE
[2019-08-23] MEDS ORDERED: Gabapentin 300 MG CAP ONE (12:38)
[2019-08-23] MEDS ORDERED: Famotidine 20 MG TAB ONE (12:38)
[2019-08-23] MEDS ORDERED: CeleCOXIB 100 MG CAP ONE (12:38)
[2019-08-23] MEDS ORDERED: Famotidine/PF 20 mg/2ml Vial ONE (12:39)
[2019-08-23] MEDS ORDERED: Midazolam HCl 2 mg/2 ml Vial ONE ×2 (14:31→14:42)
[2019-08-23] MEDS ORDERED: Lidocaine 1% w/Epinephrine 1:100K 20 ML VIAL ONE (14:33)
[2019-08-23] MEDS ORDERED: Bupivacaine PF 0.5% 30 ML VIAL ONE (14:33)
[2019-08-23] MEDS ORDERED: Fentanyl 250 MCG/5 ML VIAL ONE (14:42)
[2019-08-23] MEDS ORDERED: HYDROmorphone 0.5 MG/0.5 ML SYRINGE ONE (14:43)
[2019-08-23] MEDS ORDERED: SUGAMMADEX SODIUM 200 MG/2 ML VIAL ONE (14:43)
[2019-08-23] MEDS ORDERED: Morphine 4 MG/ML VIAL SLOW IVP PRN (18:45)
[2019-08-23] MEDS ORDERED: diphenhydrAMINE 25 MG CAP PO PRN (18:45)
[2019-08-23] MEDS ORDERED: Labetalol HCl 100 MG/20 ML VIAL SLOW IVP PRN (18:45)
[2019-08-23] MEDS ORDERED: Bisacodyl 10 MG SUPP PR PRN (18:45)
[2019-08-23] MEDS ORDERED: Promethazine HCl 25 MG/ML VIAL IM PRN ×2 (18:45→19:11)
[2019-08-23] MEDS ORDERED: Zolpidem Tartrate 5 MG TAB PO PRN (18:45)
[2019-08-23] MEDS ORDERED: traMADol HCl 50 MG TAB PO PRN ×2 (18:45)
[2019-08-23] MEDS ORDERED: Ondansetron PF 4 MG/2 ML Vial IVP PRN (18:45)
[2019-08-23] MEDS ORDERED: cloNIDine 0.1 MG TAB PO PRN (18:48)
[2019-08-23] MEDS ORDERED: Metoprolol Tartrate 5 MG/5 ML VIAL ONE (19:03)
[2019-08-23] MEDS ORDERED: HYDROmorphone 2 MG/ML VIAL SLOW IVP PRN (19:11)
[2019-08-23] MEDS ORDERED: Morphine Sulfate 2 MG/ML SYRINGE SLOW IVP PRN (19:11)
[2019-08-23] MEDS ORDERED: Promethazine HCl 25 MG/ML VIAL SLOW IVP PRN (19:11)
[2019-08-23] MEDS ORDERED: Ondansetron HCl/PF 4 MG/2 ML Vial IVP PRN (19:11)
[2019-08-23] MEDS ORDERED: PACU-Morphine 4MG/ML VIAL SLOW IVP PRN (19:11)
[2019-08-23] MEDS ORDERED: Labetalol HCl 100 MG/20 ML VIAL ONE (19:33)
[2019-08-23] MEDS: Sodium Chloride 0.9% 1,000 ML IV SCH (20:24)
[2019-08-23] MEDS: Ketorolac Tromethamine 30 MG/ML VIAL IVP SCH (21:02)
[2019-08-23 21:33] VITALS: BMI 35.3
[2019-08-23] MEDS ORDERED: Artificial Tear Sol 15 ML BOT EA EYE PRN (23:55)
[2019-08-24] MEDS: Acetaminophen 1,000 MG in Premix Bag 1 BAG IVPB SCH ×4 (00:06→16:44)
--- NOTE | 2019-08-24 02:58 | OP ---
DATE OF PROCEDURE: 08/23/2019 PREOPERATIVE DIAGNOSES: 1. A 54-year-old female, G2, P2, prior x2 with tubal ligation with symptomatic 16- to 18-week size uterine fibroids. 2. Menorrhagia due to fibroids and pelvic pain. POSTOPERATIVE DIAGNOSES: 1. A 54-year-old female, G2, P2, prior x2 with tubal ligation with symptomatic 16- to 18-week size uterine fibroids. 2. Menorrhagia due to fibroids and pelvic pain. PROCEDURES PERFORMED: Robotic TLH-BSO with ExCITE procedure. UNDERCUTTER SURGEON: Radha Sawyer PA-C ANESTHESIA: General endotracheal. ESTIMATED BLOOD LOSS: 200 mL. COMPLICATIONS: None. COUNTS: Correct x2. ANTIBIOTICS: 2 g Ancef on-call to the OR. PATHOLOGY: Uterus, cervix, bilateral fallopian tubes and ovaries. FINDINGS: 1. Normal bilateral fallopian tubes and ovaries. 2. 16- to 18-week size uterine fibroids, multiple intramural noted. 3. Clear urine present in Bojorquez catheter postprocedure and bladder was watertight to distention greater than 300 mL postprocedure. DISPOSITION: Recovery room, stable. DESCRIPTION OF PROCEDURE: The patient previously received informed consent in regard to surgery. She was taken back to the operating room, where she received general endotracheal anesthetic agent without complications. She was placed in the dorsal lithotomy position with use of Colton stirrups. She was prepped and draped in usual sterile fashion. Bojorquez catheter was placed along with a side-arm speculum. The cervix was grasped with a single-tooth tenaculum. Uterus sounded to 14 cm and a size 12 cm MARY JANE uterine manipulator was placed with a 4.0 cm cervical cup. Tenaculum and speculum were removed. Attention was then returned to the abdomen, where perspective trocar sites were infiltrated with 0.5% Marcaine with epinephrine. An upper midline skin incision was made due to the size of the uterus, which was near the umbilicus. Veress needle was placed into the abdominoperitoneal cavity of the patient, pressure less than 55. Abdomen was insufflated. Patient has pressure of 15 and then a size 12 mm trocar was placed. Laparoscope was introduced through the trocar sleeve confirming proper entry. Additional bilateral 8 mm trocars were placed under laparoscopic guidance along with the right upper quadrant fundraising assistant port. The laparoscope had been introduced through the trocar sleeve and then decided to proceed with the attempted laparoscopic removal of the uterus. The fascia in the upper mid abdomen and midline was extended approximately 2.5 cm around a small GelPOINT retractor with the GelPOINT system in place. We then placed the laparoscope trocar sleeve through this and along with the laparoscope. The uterus was then manipulated by my fundraising assistant. I grasped the right fallopian tube and ovary. This was held then by my fundraising assistant. IP ligament was coagulated and transected. Serial coagulation, hugging close the large uterus was carried out to the right round ligament that was reached. It was coagulated and transected. The anterior leaf of the broad ligament was entered. It was then dissected the vesicouterine peritoneum in a layering technique. Skeletonization of the uterine vessels was then also carried out and it was coagulated in the internal cervical os region. This was carried on the left side again, my fundraising assistant grasping the left fallopian tube, coagulating the IP ligament and transecting it with serial coagulation transection of the broad ligament hugging close to the specimen to the left round ligament was reached. It had been coagulated and transected. Again, the anterior leaf of the broad ligament was entered, dissecting laterally and medially, developing the vesicouterine peritoneal plane. This was incised and this was carried out sharp dissection, dissecting the bladder safely past the cervical vaginal margin. The bladder had been distended intermittently to ascertain its position to avoid injury during the dissection. The uterine vessels again were skeletonized on the left side. The vessels at the internal cervical os were then also coagulated with bipolar fenestrated cautery. We then manipulated the uterus again to furthermore dissect and cleaned off the lower cervix, dropping the bladder past the anticipated colpotomy site. The uterine vessels again were coagulated in the internal cervical os and just inferior to this prior to colpotomy. We then proceeded with colpotomy starting at 12 to 3 and 12 to 9 o'clock positions. Then, we carefully maneuvered the uterus, a large bulky uterine body to patient's right side, allowed me to further coagulate and then transected the posterior vaginal cuff coming around from 9 to 6 o'clock direction. Meticulous hemostasis with bipolar fenestrated cautery was carried out. My fundraising assistant continued to manipulate the uterus away from the operative site and also retract the bowel. Then, we were able to move the bulky uterus to the patient's left side, which enabled further visualization coming from a sideway view of the posterior cuff. This was completed from the 3 o'clock to 6 o'clock position. Once the cervix had been released, the uterus was then removed off the manipulator. The manipulator was then pulled into the vagina and the balloon was further inflated. I then switched out the monopolar scissors with the orin needle national van truck driver. The vaginal cuff was bleeding were made hemostatic with bipolar cautery. Then, my fundraising assistant brought in a Stratafix suture. The vaginal cuff was closed in full-thickness closure from the right angle towards the left angle back towards the midline and the excess suture and needle was then cut and removed through the right upper quadrant port. We irrigated the pedicle sites and any areas of oozing were made hemostatic with bipolar fenestrated cautery. Once this had been accomplished, my fundraising assistant prepared Aces bag. This was placed through the GelPOINT after the hammer was then undocked and then re-docked. We then brought the accordion fold to tie down Aces bag into the pelvis. The specimen was positioned superior to this. We cut the stay sutures, opening up the bag. Then, we manipulated the uterine specimen and placed it in the Aces bag. Then, the suture was brought through the previously tied loop on the opposite side closing and securing the specimen in the bag. My fundraising assistant then grasped the drawstring and brought it through the GelPOINT. I left the surgical console and then we undocked the robot. The Aces bag with the uterine was then brought up through the GelPOINT retractor. The small Bertin retractor then was replaced inside the Aces bag for protection during the morcellation. I then grasped the specimen with Billy thyroid clamps with a C incision technique, continued to move out the uterine specimen. After the contents of the bag were removed, the Bertin O retractor was taken out followed by the Aces bag which was intact. We then closed the fascia in a running continuous fashion with 0 Vicryl suture in the mid upper portion of the abdomen. The other sites were closed with 4-0 Monocryl and Dermabond. A sponge stick was placed in the vagina, confirming hemostasis vaginally. Bojorquez catheter was draining clear urine. The patient was awakened from anesthesia and transferred to recovery room in stable condition. Job ID: [id number]
[2019-08-24] MEDS: Ketorolac Tromethamine 30 MG/ML VIAL IVP SCH (04:09)
[2019-08-24 06:11] LABS: Hemoglobin 10.6 g/dL (12.0-16.0); Mean Corpuscular HGB CONC 32.2 g/dL (32.0-36.0); Mean Corpuscular Hemoglobin 28.5 pg (27.0-31.0); Mean Corpuscular Volume 88.7 fL (78.0-98.0); Mean Platelet Volume 7.9 fL (7.4-10.4); Platelet Count 215 thou/uL (130-400); RBC Distribution Width 13.4 % (11.5-14.5); White Blood Cell (WBC) Count 12.5 thou/uL (4.8-10.8)
--- NOTE | 2019-08-24 08:33 | PDOC.EVN ---
Event Note - Event Note Event Note: Some nausea. Gas pains. No other issues. Eye irritation resolved. O: 120/58 P67 R 20 T 98.3 HCT 32.8% U/O 2400 ml. ABD: soft. Trochar sites CLEAN/DRY/ Intact. A/P:post op day 0-1 from robotic tlh/bso with EXCITE procedure for large uterine fibroids. Hemodynamicaly stable. Increase activity. treat nausea. observe . Probable d/c later today.
[2019-08-24] MEDS: Simethicone Chewable 80 MG TAB PO PRN ×2 (08:52→16:43)
[2019-08-24] MEDS: Ferrous Sulfate 325 MG TAB PO SCH (08:53)
[2019-08-24] MEDS ORDERED: Lisinopril/Hydrochlorothiazide 10 mg/12.5 mg Tablet PO SCH (09:00)
[2019-08-24] MEDS ORDERED: Amlodipine 10 MG TAB PO SCH (09:00)
[2019-08-24] MEDS: Ibuprofen 800 MG TAB PO SCH ×2 (13:09→21:55)
[2019-08-24] MEDS: Sodium Chloride 0.9% 1,000 ML IV SCH ×2 (13:09→18:49)
[2019-08-25] MEDS: Sodium Chloride 0.9% 1,000 ML IV SCH ×2 (00:47→03:57)
[2019-08-25] MEDS: Ibuprofen 800 MG TAB PO SCH (06:04)
--- NOTE | 2019-08-25 07:55 | PDOC.EVN ---
Event Note - Event Note Event Note: Feels much better this AM. Nausea resolved. Voiding well. Tolerating diet. O: Tmax 98.5 R14 P95 125/73 ABD:soft/non distended.Trochar sites C/D/I A/P:Post op day 1-2 from robotic tlh/bso with EXCITE for large uterine fibroids. Pain much improved along with resolution of nausea. Pathology pending. Discharge home. F/u in 2 and 6 weeks as scheduled.
[2019-08-25 08:42] VITALS: BP 148/73; TEMP 98.3
[2019-08-25] MEDS: Ferrous Sulfate 325 MG TAB PO SCH (09:06)
--- NOTE | 2019-08-26 06:03 | DIS ---
DATE OF ADMISSION: 08/23/2019 DATE OF DISCHARGE: 08/25/2019 DATE OF SURGERY/ADMISSION: 08/23/2019. DIAGNOSES: 1. Large symptomatic uterine fibroids. 2. Menorrhagia due to uterine fibroids. 3. History of anemia due to fibroids. Comorbid condition is chronic hypertension and chronic migraines. PROCEDURES PERFORMED: Robotic total laparoscopic hysterectomy with bilateral salpingo-oophorectomy with the ExCITE procedure. SUMMARY OF HOSPITAL COURSE: Ms. Corona is a 54-year-old female with 2 prior C-sections, who had approximately 20-week size uterine fibroids with estimated weight of the uterus of 1000 g. She underwent definitive surgical therapy with robotic TLH/BSO with ExCITE procedure in late afternoon of 08/23/2019. Postoperatively, her vital signs remained stable. Her postoperative hematocrit was 32.8%. She had some initial nausea on postop day #1, responsive to Zofran. Also had some pain that eventually was remedied with the IV , Toradol, and then p.r.n. morphine and was switched over to oral tramadol. 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 Pain control is good with tramadol and p.r.n. ibuprofen. Pathology is pending at the time of this dictation. She is tolerating her diet, ambulating, voiding without difficulty. Plan is for discharge and she was discharged with a prescription for tramadol 50 mg q.6 hours p.r.n. pain, [id number]-froyicq ibuprofen as directed, and will be initiated on estradiol 1 mg tablet daily. Pathology will be followed up when available. She has a scheduled postop visit in 2 and 6 weeks. Job ID: [id number]
== END 2019-08-25 09:38 | disposition home or self-care (01) ==
LOC: SDC 11:23 → 3SE 20:39 → SDC 08-25 09:38
PROVIDERS: ATTEND Obstetrics & Gynecology
PROC: 0UT24ZZ Resection of Bilateral Ovaries, Percutaneous Endoscopic Approach (ICD-10-PCS; principal; 2019-08-25)
PROC: 0UT74ZZ Resection of Bilateral Fallopian Tubes, Percutaneous Endoscopic Approach (ICD-10-PCS; principal; 2019-08-25)
PROC: 0UT94ZZ Resection of Uterus, Percutaneous Endoscopic Approach (ICD-10-PCS; principal; 2019-08-25)
DX: D25.1 Intramural leiomyoma of uterus (principal); D25.2 Subserosal leiomyoma of uterus; N83.02 Follicular cyst of left ovary; N83.01 Follicular cyst of right ovary; N83.8 Other noninflammatory disorders of ovary, fallopian tube and broad ligament; I10 Essential (primary) hypertension; Z30.2 Encounter for sterilization; Z79.899 Other long term (current) drug therapy; Z80.3 Family history of malignant neoplasm of breast; Z80.0 Family history of malignant neoplasm of digestive organs
CPT/HCPCS: 36415; 80048; 85027; 86850; 86900; 86901; 88307; J0131; J0690; J1100; J1170; J1885; J2250; J2270; J2405; J2550; J2704; J3010; S0020; S0028

== ENCOUNTER 2019-09-02 02:27 | Emergency (ER) | payer BC ==
[2019-09-02 03:03] LABS: #Eosinphils 0.1 thou/uL (0.0-0.7); #Lymphocytes 1.9 thou/uL (1.20-3.40); #Monocytes 0.8 thou/uL (0.11-0.59); %Basophils 0.3 % (0.0-1.0); %Eosinophils 0.5 % (0.0-10.0); %Lymphocytes 15.8 % (21.0-51.0); %Monocytes 6.6 % (0.0-10.0); %Neutrophils 76.8 % (42.0-75.0); Hemoglobin 11.4 g/dL (12.0-16.0); Mean Corpuscular HGB CONC 33.6 g/dL (32.0-36.0); Mean Corpuscular Hemoglobin 29.3 pg (27.0-31.0); Mean Corpuscular Volume 87.2 fL (78.0-98.0); Mean Platelet Volume 7.9 fL (7.4-10.4); Platelet Count 252 thou/uL (130-400); RBC Distribution Width 12.8 % (11.5-14.5); White Blood Cell (WBC) Count 11.8 thou/uL (4.8-10.8)
[2019-09-02 03:21] LABS: ALT (SGPT) 13 U/L (8-55); AST (SGOT) 16 U/L (5-34); Albumin 3.6 g/dL (3.5-5.0); Alkaline Phosphatase 102 U/L (40-110); Anion Gap 12 mmol/L (10-20); BUN (Urea Nitrogen) 6 mg/dL (9.8-20.1); Bilirubin, Total 0.8 mg/dL (0.2-1.2); Calc. Creatinine Clearance 0 mL/min (70-130); Calcium 8.6 mg/dL (7.8-10.44); Carbon Dioxide 25 mmol/L (22-29); Chloride 104 mmol/L (98-107); Estimated GFR-MDRD Greater than 90; Globulin 3.7 g/dL (2.4-3.5); Glucose 128 mg/dL (70-105); Potassium 3.7 mmol/L (3.5-5.1); Protein, Total 7.3 g/dL (6.0-8.3); Sodium 137 mmol/L (136-145)
[2019-09-02] MEDS ORDERED: Mineral Oil ENEMA PR SCH (05:30)
--- NOTE | 2019-09-02 08:46 | RAD ---
ABDOMINAL SURVEY WITH UPRIGHT CHEST AND 2 VIEW ABDOMEN: INDICATION: Abdominal pain. One week post hysterectomy. FINDINGS: Lung castillo are clear on the upright chest exam. Supine and upright views of abdomen show unremarkable bowel gas pattern. Scattered stool and gas in the colon. There is some scattered small bowel gas; however, no small bowel dilatation. No evidence of free intraperitoneal air. IMPRESSION: No acute finding. POS: [facility]
== END 2019-09-02 06:48 | disposition home or self-care (01) ==
LOC: ERS 02:27
DX: K59.00 Constipation, unspecified (principal); E78.5 Hyperlipidemia, unspecified; E78.00 Pure hypercholesterolemia, unspecified; I10 Essential (primary) hypertension; Z79.891 Long term (current) use of opiate analgesic
CPT/HCPCS: 36415; 74022; 80053; 85025